=== PATIENT | male | born 1990 | race Hispanic/Latino ===

== ENCOUNTER 2018-04-04 05:19 | Emergency (ER) | payer OTHER ==
[2018-04-04 05:33] VITALS: TEMP 98.6
--- NOTE | 2018-04-04 05:34 | C.PDOC ---
History Of Present Illness 27 year old male presents to the emergency department with complaints of RUQ abdominal pain which began last night. Patient describes the pain as sharp, stabbing, and non-radiating. He denies fever, chills, nausea, and vomiting. Time Seen by Provider: 04/04/18 05:34 Chief Complaint (Nursing): Abdominal Pain History Per: Patient History/Exam Limitations: no limitations Onset/Duration Of Symptoms: Hrs Current Symptoms Are (Timing): Still Present Severity: Mild Pain Scale Rating Of: 4 Location Of Pain/Discomfort: RUQ Radiation Of Pain To:: None Quality Of Discomfort: Sharp, Stabbing, "Pain" Associated Symptoms: denies: Fever, Chills, Nausea, Vomiting Past Medical History Reviewed: Historical Data, Nursing Documentation, Vital Signs Vital Signs: Last Vital Signs Temp 98.6 F 04/04/18 05:30 Pulse 92 H 04/04/18 05:30 Resp 16 04/04/18 05:30 BP 155/93 H 04/04/18 05:30 Pulse Ox 97 04/04/18 05:30 - Medical History PMH: Asthma, Depression, Sleep Apnea Surgical History: No Surg Hx Family History: States: No Known Family Hx - Social History Hx Alcohol Use: Yes Hx Substance Use: Yes Review Of Systems Constitutional: Negative for: Fever, Chills Gastrointestinal: Positive for: Abdominal Pain (RUQ). Negative for: Nausea, Vomiting Physical Exam - Physical Exam Appears: Non-toxic, No Acute Distress Skin: Warm, Dry Head: Normacephalic Eye(s): bilateral: Normal Inspection, PERRL, EOMI Oral Mucosa: Moist Neck: Trachea Midline, Supple Chest: Symmetrical, No Tenderness Cardiovascular: Rhythm Regular, No Murmur Respiratory: No Rales, No Rhonchi, No Wheezing Gastrointestinal/Abdominal: Soft, Tenderness (RUQ ), No Guarding, No Rebound Pulses: Left Dorsalis Pedis: Normal, Right Dorsalis Pedis: Normal Neurological/Psych: Oriented x3 ED Course And Treatment - Laboratory Results Result Diagrams: 04/04/18 06:09 04/04/18 06:09 O2 Sat by Pulse Oximetry: 97 (RA) Pulse Ox Interpretation: Normal Progress Note: Plan: CMP. Lipase. CBC. NaCl IV Fluids. Toradol 30mg PO. Urinalysis Disposition Counseled Patient/Family Regarding: Studies Performed, Diagnosis - Disposition Disposition Time: 05:34 Condition: FAIR Forms: [facility] ([place]) - Clinical Impression Clinical Impression: Abdominal pain - Scribe Statement The provider has reviewed the documentation as recorded by the Scribe (Valentin Tavera) Provider Attestation: All medical record entries made by the Scribe were at my direction and personally dictated by me. I have reviewed the chart and agree that the record accurately reflects my personal performance of the history, physical exam, medical decision making, and the department course for this patient. I have also personally directed, reviewed, and agree with the discharge instructions and disposition. Physician Patient Turnover Patient Signed Over To: Howard Hassan DO Handoff Comments: pending ct, re-eval and dispo
[2018-04-04] MEDS ORDERED: Sodium Chloride 0.9% 1,000 ML IV ONE (05:37)
[2018-04-04 06:13] LABS: BASO % 0.3 % (0.0-2.0); EOS # 0.1 K/uL (0.0-0.7); EOS % 0.6 % (0.0-4.0); HEMOGLOBIN 15.5 g/dL (12.0-18.0); LYMPH # 1.5 K/uL (1.0-4.3); LYMPH % 10.1 % (20.0-40.0); MEAN CELL VOLUME 87.4 fL (80.0-94.0); MEAN CORPUSCULAR HEMOGLOBIN 30.1 pg (27.0-31.0); MEAN CORPUSCULAR HGB CONC 34.4 g/dL (33.0-37.0); MEAN PLATELET VOLUME 7.8 fL (7.2-11.7); MONO # 1.4 K/uL (0.0-0.8); MONO % 9.9 % (0.0-10.0); NEUT # 11.5 K/uL (1.8-7.0); NEUT % 79.1 % (50.0-75.0); RBC 5.14 Mil/uL (4.40-5.90); RED CELL DISTRIBUTION WIDTH 12.8 % (11.5-14.5); WHITE BLOOD COUNT 14.5 K/uL (4.8-10.8)
[2018-04-04 06:25] LABS: ALB/GLOB RATIO 1.6 (1.0-2.1); ALBUMIN 4.2 g/dL (3.5-5.0); ALT/SGPT 45 U/L (21-72); AST/SGOT 19 U/L (17-59); BLOOD UREA NITROGEN 11 mg/dL (9-20); CALCIUM 9.4 mg/dl (8.6-10.4); GFR NON-AFRICAN AMERICAN > 60; LIPASE 17 U/L (23-300)
[2018-04-04 07:49] LABS: SQUAMOUS EPITHIAL < 1 /hpf (0-5); URINE BILIRUBIN NEGATIVE (NEGATIVE); URINE BLOOD 1+ (NEGATIVE); URINE CLARITY Clear (Clear); URINE COLOR Yellow (YELLOW); URINE GLUCOSE (UA) NORMAL (Normal); URINE LEUKOCYTE ESTERASE NEG Leu/uL (Negative); URINE PROTEIN NEGATIVE (NEGATIVE); URINE UROBILINOGEN NORMAL mg/dL (0.2-1.0)
[2018-04-04] MEDS ORDERED: Iodixanol 320 MG/ML 100 ML BOTTLE IV ONE (07:59)
[2018-04-04 08:12] VITALS: BP 146/86; PULSE 99; RESP 20; O2SAT 99
--- NOTE | 2018-04-04 08:29 | CT ---
Date of service: 04/04/2018 PROCEDURE: CT Abdomen and Pelvis with intravenous contrast HISTORY: Right upper quadrant abdominal pain COMPARISON: None. TECHNIQUE: Multiple contiguous axial images were performed the abdomen and pelvis with the use of intravenous contrast. Subsequently, sagittal and coronal reformatted images were obtained. Radiation dose: Total exam DLP = 1309.83 mGy-cm. This CT exam was performed using one or more of the following dose reduction techniques: Automated exposure control, adjustment of the mA and/or kV according to patient size, and/or use of iterative reconstruction technique. FINDINGS: LOWER THORAX: Prominent consolidative opacification in the right lower lobe concerning for pneumonia. 5.7 millimeter intra fissural nodule and or node seen on series 3, image 9 within the right lung. 2 millimeter subpleural nodule at the lateral aspect of the right middle lobe on series 3, image 12. 3-6 month interval follow-up exam may be helpful. Mild atelectasis within the posterior aspect of the inferior left upper lobe. Atelectasis within the left lower lobe. No pleural or pericardial effusion. Elevated right hemidiaphragm. LIVER: Unremarkable. No gross lesion or ductal dilatation. GALLBLADDER AND BILE DUCTS: Unremarkable. PANCREAS: Unremarkable. No gross lesion or ductal dilatation. SPLEEN: Unremarkable. ADRENALS: Unremarkable. No mass. KIDNEYS AND URETERS: 2.1 centimeter low-attenuation lesion seen within the midpole of the left kidney demonstrating a Hounsfield unit attenuation of 10 suggestive for a cyst. VASCULATURE: Unremarkable. No aortic aneurysm. BOWEL: Few mildly thickened loops of small bowel in the upper mid abdomen which may represent an enteritis. Clinical correlation. Fecal retention in the right hemicolon. APPENDIX: Unremarkable. Normal appendix. PERITONEUM: Unremarkable. No free fluid. No free air. LYMPH NODES: Unremarkable. No enlarged lymph nodes. BLADDER: Underdistended and or mildly thick-walled urinary bladder. REPRODUCTIVE: Unremarkable. BONES: Degenerative changes in the spine. Anterolisthesis of L4 on L5 with associated pars defects. OTHER FINDINGS: Elevated right hemidiaphragm. IMPRESSION: Focal consolidation within the right lower lobe concerning for pneumonia. Clinical correlation. Few mildly thickened loops of small bowel in the upper mid abdomen which may represent an enteritis. Clinical correlation. Underdistended and or mildly thick-walled urinary bladder. Degenerative changes in the spine. Anterolisthesis of L4 on L5 with associated pars defects. Additional findings as above.
== END 2018-04-04 09:00 | disposition home or self-care (01) ==
LOC: C.ER 05:19
DX: R10.9 Unspecified abdominal pain (principal)
CPT/HCPCS: 74177; 80053; 81001; 83690; 85025; 96361; 96374; 99284; J1885; J7030; Q9967

== ENCOUNTER 2018-04-04 16:29 | Emergency (ER) | payer OTHER ==
[2018-04-04 16:34] VITALS: BMI 30.4
[2018-04-04 16:35] VITALS: RESP 16
--- NOTE | 2018-04-04 18:00 | C.PDOC ---
History Of Present Illness 27 y/o male returns to the ED today for complaints of recurrent RUQ abdominal pain and 1 episode of hemoptysis. Of note patient was seen earlier this morning for complaint of RUQ pain, and was diagnosed with RLL pneumonia on the abdominal CT. Patient was pain-free on reevaluation and discharged home with a Z-pack. He now reports developing scant hemoptysis when clearing his throat, prompting him to return. Also notes he had severe pain to the RUQ again, for which he took an NSAID tablet. Patient states the pain then resolved [employer]. Otherwise he denies any fever, chills, vomiting, or changes in bowel/bladder habits. Records reviewed, and CXR was not done earlier today. Time Seen by Provider: 04/04/18 17:43 Chief Complaint (Nursing): Shortness Of Breath History Per: Patient History/Exam Limitations: no limitations Onset/Duration Of Symptoms: Hrs Current Symptoms Are (Timing): Still Present Past Medical History Reviewed: Historical Data, Nursing Documentation, Vital Signs Vital Signs: Last Vital Signs Temp 99.5 F 04/04/18 16:35 Pulse 98 H 04/04/18 16:35 Resp 16 04/04/18 16:35 BP 128/83 04/04/18 16:35 Pulse Ox 98 04/04/18 16:35 - Medical History PMH: Asthma, Depression, Sleep Apnea Other Surgeries: Left hand surgery Family History: States: No Known Family Hx - Social History Hx Tobacco Use: No Hx Alcohol Use: Yes Hx Substance Use: Yes - Immunization History Hx Tetanus Toxoid Vaccination: No Hx Influenza Vaccination: No Hx Pneumococcal Vaccination: No Review Of Systems Except As Marked, All Systems Reviewed And Found Negative. Constitutional: Negative for: Fever, Chills Cardiovascular: Negative for: Chest Pain Respiratory: Positive for: Cough, Hemoptysis. Negative for: Shortness of Breath Gastrointestinal: Positive for: Abdominal Pain (RUQ). Negative for: Vomiting, Diarrhea, Constipation, Hematochezia Genitourinary: Negative for: Dysuria, Frequency Neurological: Negative for: Weakness, Dizziness Physical Exam - Physical Exam Appears: Non-toxic, No Acute Distress Skin: Normal Color, Warm, Dry Head: Atraumatic, Normacephalic Eye(s): bilateral: Normal Inspection, PERRL, EOMI Oral Mucosa: Moist Throat: Normal (OP clear), No Erythema Neck: Normal ROM, Supple Chest: Symmetrical Cardiovascular: Rhythm Regular, No Murmur Respiratory: No Rales, No Rhonchi, No Wheezing, Other (Egophony in the right l ower quadrant) Gastrointestinal/Abdominal: Soft, No Tenderness, No Distention Back: No CVA Tenderness Extremity: Bilateral: Atraumatic, Normal Color And Temperature, Normal ROM Pulses: Left Dorsalis Pedis: Normal, Right Dorsalis Pedis: Normal Neurological/Psych: Oriented x3, Normal Speech ED Course And Treatment O2 Sat by Pulse Oximetry: 98 (RA) Pulse Ox Interpretation: Normal - Radiology CXR: Interpreted by Me CXR Interpretation: Yes: Infiltrates (+RLL PNA), Other (+ elevated R hemidiaphragm) Medical Decision Making Medical Decision Making: Impression: ? if scant blood streak vs clots of blood with clearing throat @ home. CT Abd/Pelvis this AM showed RLL PNA tx with Azithromycin Z-pack is adequate tx. Pain relieved with NSAIDS clear lungs with no wheezing, + egophony RLL area Denies hx of elevated right amber-diaphragm. Extensive discussion had w/ patient, who is requesting CT scan be considered. However, explained that CT scan with IV contrast was already done less than 24 hrs ago, and adequate diagnosis can be made via CXR. they agree to forego CT scan. elevated R HD probably chronic and may contribute to hypoventilation of RLL and increased risk of RLL PNA As CT ABD/Pelvis w IV done < 24 hrs ago, pt defers repeat CT without contrast at this time for minimal additional diagnostic value, and small PNA seen on CXR, and agrees better to repeat CT Chest w IV contrast in 4-6 weeks when PNA resolved to further eval Motrin for pain as needed NO s/s of sig hemoptysis in ED LOW susp of PE Disposition Doctor Will See Patient In The: Office Counseled Patient/Family Regarding: Studies Performed, Diagnosis - Disposition Referrals: [facility] [Outside] [facility] [Outside] [facility] [Outside] [facility] [Outside] Disposition: HOME/ ROUTINE Disposition Time: 19:28 Condition: GOOD Additional Instructions: Chest X-ray shows small RLL PNA and chronically elevated R hemidiaphragm consider CT chest in 4-6 weeks to re-eval for RLL PNA and ? underlying pathology Elevated R hemidiaphragm may be causative to hypoinflation of R lower lobe continue Motrin 600 mg every 6 hours as needed for R lower chest discomfort Continue Azithromycin Z-Pack until completed Return to ED for any significant changes or deterioration. Call our outpatient [facility] for appt for further follow-up Instructions: Community-Acquired Pneumonia in Adults Forms: [facility] (Lao) - Clinical Impression Clinical Impression: Pneumonia, Elevated hemidiaphragm - Scribe Statement The provider has reviewed the documentation as recorded by the Scribe (Edwige Dozier) Provider Attestation: All medical record entries made by the Scribe were at my direction and personally dictated by me. I have reviewed the chart and agree that the record accurately reflects my personal performance of the history, physical exam, medical decision making, and the department course for this patient. I have also personally directed, reviewed, and agree with the discharge instructions and disposition.
[2018-04-04 19:38] VITALS: BP 125/79; PULSE 90; TEMP 99.4
[2018-04-04 20:47] VITALS: O2SAT 98
--- NOTE | 2018-04-05 07:41 | RAD ---
HISTORY: cough, RLL PNA on CT ABD today COMPARISON: CT abdomen and pelvis performed same day. TECHNIQUE: Chest PA and lateral FINDINGS: LUNGS: Airspace opacity right lung base, possibly atelectasis versus infectious/inflammatory process. Mild subsegmental atelectasis left lung base. PLEURA: No pleural effusion is identified. Elevated right hemidiaphragm. CARDIOVASCULAR: Heart size is within normal limits. OSSEOUS STRUCTURES: No acute fracture identified. VISUALIZED UPPER ABDOMEN: Unremarkable. OTHER FINDINGS: None. IMPRESSION: Airspace opacity right lung base, possibly atelectasis versus infectious/inflammatory process. Mild subsegmental atelectasis left lung base.
== END 2018-04-04 19:36 | disposition home or self-care (01) ==
LOC: C.ER 16:29
DX: J18.9 Pneumonia, unspecified organism (principal); J98.6 Disorders of diaphragm